=== PATIENT | female | born 1960 | race African-American/Black ===

== ENCOUNTER → 2019-07-23 | Outpatient (CLI) | payer OTHER ==
[~2019-07-23] MED LIST: AUGMENTIN 875-1 EACH PO; FLOVENT DISKUS50 MCG IH; HYDROCHLOROTHIA25 M1 PO; PROAIR HFA8.5 GM INH; SIMVASTATIN80 MG PO; SYNTHROID100 MC1 PO
--- NOTE | 2019-07-24 17:06 | PATH ---
[facility] [address] [place] [address] PATHOLOGY RPT PROCEDURE Name: RADHA SKINNER Room #: REG DANIA Ya#: [id number] Admission: 07/23/19 Date of : 56 Discharge: Report #: [id number] Path Case #: [id number] [facility] Accession Number: [id number] . 01 Material submitted: . PART A: colon - DESCENDING COLON POLYP. Modifiers: descending PART B: ileo-cecal valve - ILEOCECAL VALVE POLYP . 01 Clinical history: . Pre-OP DX: Hx of polyp, family colon cancer Post-OP DX: Polyps, diverticulosis . 02 Diagnosis: A. Polyp, descending colon polyp, endoscopic biopsy: - Compatible with a hyperplastic polyp. - Negative for dysplasia. . B. Polyp, ileocecal valve polyp, endoscopic biopsy: - Serrated polyp. - Negative for dysplasia. (IUV/db; 07/24/2019) LBQ 07/24/2019 1516 Local . 02 Electronically signed: . Anna Cedillo MD, Pathologist NPI- [id number] . 01 Gross description: . A. Received in formalin labeled "Radha Skinner, descending colon polyp," are 4 segments of patricia soft tissue measuring 0.4 x 0.4 x 0.1 cm in aggregate dimensions and ranging from 0.1 to 0.3 cm in maximum dimension. The specimen is submitted entirely in cassette A1. Due to the minute nature of some of the specimen, it may not survive processing. . B. Received in formalin labeled "Radha Skinner, ileocecal valve polyp," are 3 segments of patricia soft tissue measuring 0.9 x 0.6 x 0.4 cm in aggregate dimensions and ranging from 0.4 to 0.5 cm in maximum dimension. The specimen is submitted entirely in cassette B1. (TSD; 07/23/2019) TOB/TOB 07/23/2019 1729 Local . 02 Pathologist provided ICD-10: K62.1, D12.6 . 02 CPT . 985743, 466729 Specimen Comment: A courtesy [place] [address] PATHOLOGY RPT PROCEDURE Name: RADHA SKINNER Room #: REG CLKimberly Ya#: [id number] Admission: 07/23/19 Date of : 56 Discharge: Report #: [id number] Path Case #: [id number] Specimen Comment: [phone], . Specimen Comment: Report sent to / DR SHEPPARD Performed at: [address], [place], [place] [id number] MD Terence Singh MD Phone: [phone] Performed at: [address] [id number] MD Anna Cedillo MD Phone: [phone]
== END | disposition home or self-care (01) ==
LOC: GI 07:36
DX: Z12.11 Encounter for screening for malignant neoplasm of colon (principal); Z86.010 Personal history of colon polyps; Z80.0 Family history of malignant neoplasm of digestive organs; K63.5 Polyp of colon; K57.30 Diverticulosis of large intestine without perforation or abscess without bleeding; I10 Essential (primary) hypertension; E78.00 Pure hypercholesterolemia, unspecified; J45.909 Unspecified asthma, uncomplicated; G47.30 Sleep apnea, unspecified; Z90.710 Acquired absence of both cervix and uterus; Z98.890 Other specified postprocedural states; Z79.899 Other long term (current) drug therapy
CPT/HCPCS: 62110; 62900

== ENCOUNTER 2019-09-02 07:41 | Emergency (ER) | payer OTHER ==
[~2019-09-02] VITALS: Ht 167.6 cm; Wt 119.8 kg
[2019-09-02] MEDS ORDERED: FLOVENT DISKUS50 MCG IH (07:50)
[2019-09-02] MEDS ORDERED: PROAIR HFA8.5 GM INH (07:50)
[2019-09-02] MEDS ORDERED: HYDROCHLOROTHIA25 M1 PO (07:51)
[2019-09-02] MEDS ORDERED: SYNTHROID100 MC1 PO (07:51)
[2019-09-02] MEDS ORDERED: SIMVASTATIN80 MG PO (07:51)
[2019-09-02] MEDS ORDERED: AUGMENTIN 875-1 EACH PO (08:38)
[2019-09-02 09:05] VITALS: BP 169/73
== END 2019-09-02 09:07 | disposition home or self-care (01) ==
LOC: ER 07:41
DX: S50.811A Abrasion of right forearm, initial encounter (principal); I10 Essential (primary) hypertension; E78.00 Pure hypercholesterolemia, unspecified; E03.9 Hypothyroidism, unspecified; J45.909 Unspecified asthma, uncomplicated; Z90.710 Acquired absence of both cervix and uterus; Y04.1XXA Assault by human bite, initial encounter; Y92.89 Other specified places as the place of occurrence of the external cause; Y93.89 Activity, other specified; Y99.0 Civilian activity done for income or pay

== ENCOUNTER → 2020-07-25 | Outpatient (CLI) | payer OTHER | LOC: LAB 16:29 | PROVIDERS: ATTEND Hospitalist | DX: Z20.828 Contact with and (suspected) exposure to other viral communicable diseases (principal) ==

== ENCOUNTER → 2020-07-29 | Outpatient (CLI) | payer OTHER | LOC: NUC 09:16 | PROVIDERS: ATTEND Family Medicine | DX: R68.81 Early satiety (principal); R11.10 Vomiting, unspecified ==

== ENCOUNTER → 2020-07-31 | Outpatient (CLI) | payer OTHER | LOC: LAB 02:18 | PROVIDERS: ATTEND Specialist | DX: Z20.828 Contact with and (suspected) exposure to other viral communicable diseases (principal) ==

== ENCOUNTER → 2020-09-25 | Outpatient (CLI) | payer OTHER | LOC: LAB 13:56 | PROVIDERS: ATTEND Specialist | DX: U07.1 COVID-19 (principal) ==

== ENCOUNTER → 2020-11-03 | Outpatient (CLI) | payer OTHER ==
[~2020-11-03] VITALS: Ht 167.6 cm; Wt 125.2 kg
[~2020-11-03] MED LIST changes: +ALIVE WOMEN'S1 EAC3 PO; +B COMPLEX1 EACH PO; +HM CALCIUM-MAG1 EACH PO; +LIPITOR40 MG PO; +PROBIOTIC1 EAC7 PO; +SYMBICORT160 MCG/4. INH; +TIROSINT150 MCG PO; +VITAMIN C500 M2 PO; +VITAMIN D325 MC3 PO
--- NOTE | 2020-11-03 11:14 | EKG ---
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
== END | disposition home or self-care (01) ==
LOC: GI 09-15 13:56
PROVIDERS: ATTEND Internal Medicine Gastroenterology
DX: R13.10 Dysphagia, unspecified (principal); R12 Heartburn; K44.9 Diaphragmatic hernia without obstruction or gangrene; K22.2 Esophageal obstruction; K20.90 Esophagitis, unspecified without bleeding; I10 Essential (primary) hypertension; E78.00 Pure hypercholesterolemia, unspecified; F41.9 Anxiety disorder, unspecified; Z79.899 Other long term (current) drug therapy; Z98.890 Other specified postprocedural states
CPT/HCPCS: 62110; 62900

== ENCOUNTER 2021-09-01 21:14 | Emergency (ER) | payer OTHER ==
[~2021-09-01] VITALS: Ht 167.6 cm; Wt 127.0 kg
[2021-09-01 22:16] LABS: URINE BILIRUBIN 2+ (Negative); URINE BLOOD TRACE (Negative); URINE CLARITY CLEAR; URINE COLOR YELLOW; URINE GLUCOSE-RANDOM* NEGATIVE (Negative); URINE KETONES NEGATIVE (Negative); URINE NITRITE-REFLEX NEGATIVE (Negative); URINE PROTEIN (DIPSTICK) NEGATIVE (Negative); URINE SPECIFIC GRAVITY 1.015 (1.005-1.035)
[2021-09-01 22:20] LABS: URINE LEUKOCYTES-REFLEX 3+ (Negative)
[2021-09-01 22:27] LABS: CASTS None Seen /LPF (None Seen); CRYSTALS None Seen /LPF (None Seen); MUCUS 4-6 Moderate strn/LPF (None Seen); SQUAMOUS 4-10 Moderate /LPF (0-3); URINE RBC 1-2 Rare /HPF (NONE SEEN)
[2021-09-01] MEDS ORDERED: CEPHALEXIN500 MG PO (22:46)
[2021-09-01] MEDS ORDERED: ONDANSETRON ODT4 MG PO (22:47)
[2021-09-01 22:51] LABS: HEMATOCRIT 38.9 % (37.0-47.0); HEMOGLOBIN 12.9 gm/dL (12.0-15.0); MCH 27.5 pg (26.0-34.0); MCHC 33.1 g/dL (28.0-37.0); MCV 83.1 fL (80.0-100.0); RBC 4.68 mil/uL (4.20-5.00); RDW 15.8 % (10.5-14.5); WBC 12.8 thou/uL (4.0-11.0)
[2021-09-01 22:55] LABS: CALCIUM 9.9 mg/dL (8.5-10.1); POTASSIUM 3.2 mmol/L (3.5-5.1)
[2021-09-01 23:06] LABS: ALBUMIN 3.4 g/dL (3.4-5.0); TOTAL BILIRUBIN 4.4 mg/dL (0.2-1.0); TOTAL PROTEIN 7.6 g/dL (6.4-8.2)
[2021-09-02 01:15] VITALS: BP 144/86
--- NOTE | 2021-09-02 07:25 | EKG ---
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 : 1960 Requested By: Alexa Pitts Order Number: [id number] MD: Zenon Bhandari Measurements Intervals [place] Rate: 88 P: 59 MA: 149 QRS: 45 QRSD: 91 T: 27 QT: 368 QTc: 446 Interpretive Statements Sinus rhythm Ventricular premature complex Probable left atrial enlargement Probable left ventricular hypertrophy Compared to ECG 11/03/2020 08:07:03 Ventricular premature complex(es) now present Electronically Signed On 09-02-2021 7:25:50 DIGITAL PRINTER by Zenon Bhandari [email or web address] <ELECTRONICALLY SIGNED> By: Zenon Bhandari MD, [facility] 09/02/21 0725 08 08 Zenon Bhandari MD, FACC /EPI
== END 2021-09-02 01:44 | disposition home or self-care (01) ==
LOC: ER 21:14
PROVIDERS: Physician Assistant
DX: N39.0 Urinary tract infection, site not specified (principal); R11.2 Nausea with vomiting, unspecified; R19.7 Diarrhea, unspecified; E78.00 Pure hypercholesterolemia, unspecified; E78.5 Hyperlipidemia, unspecified; E03.9 Hypothyroidism, unspecified; J45.909 Unspecified asthma, uncomplicated; F41.9 Anxiety disorder, unspecified; I10 Essential (primary) hypertension; Z90.49 Acquired absence of other specified parts of digestive tract; Z90.710 Acquired absence of both cervix and uterus; Z79.51 Long term (current) use of inhaled steroids; Z79.891 Long term (current) use of opiate analgesic; Z79.1 Long term (current) use of non-steroidal anti-inflammatories (NSAID); Z79.899 Other long term (current) drug therapy